=== PATIENT | female | born 2000 | race Caucasian/White ===

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

== ENCOUNTER → 2021-01-13 09:32 | Outpatient (BNVA) | payer MEDICAID, SELFPAY | PROVIDERS: PCP Physician Assistant; Visit Provider Specialist | DX: G43.711 Chronic migraine without aura, intractable, with status migrainosus (principal) | CPT/HCPCS: 64615; J0585 ==

== ENCOUNTER 2021-02-15 13:16 | Emergency (ER) | payer MEDICAID, SELFPAY ==
[2021-02-15 13:43] VITALS: BP 100/66; PULSE 88; RESP 18; TEMP 36.9; O2SAT 100; BMI 33.8
--- NOTE | 2021-02-15 14:03 | CT_ITS ---
WS: [email or web address] Reason For Exam: neck pain/head injury DLP: 823.[address] scans at [facility] use at least one of these dose optimization techniques: automated e xposure control; mA and/or kV adjustment per patient size (includes targeted exams where dose is matc hed to clinical indication); or iterative reconstruction. 02/15/2021 4:02 PM. The C-spine is evaluated in axial plane with sagittal and coronal reformatted images. No evidence of fracture or dislocation. Small calcification along the posterior longitudinal ligament at C3-4. Paraspinal soft tissues appear normal. CT/CT cervical spin wo con* [id number] IMPRESSION: 1. No acute C-spine fracture or malalignment.
--- NOTE | 2021-02-15 14:03 | CT_ITS ---
WS: [email or web address] Exam: CT head wo con* [id number] Date/Time of Exam: 02/15/2021 3:41 PM Reason For Exam: trauma DLP: 907.[address] scans at [facility] use at least one of these dose optimization techniques: automated e xposure control; mA and/or kV adjustment per patient size (includes targeted exams where dose is matc hed to clinical indication); or iterative reconstruction. Technique: Axial contiguous CT images of the brain are obtained. Findings: There is no midline shift. There is no sign of intracranial blood, mass effect or extra axial fluid collection. No sign of acute stroke. The skull and orbits show no evidence of injury or other acute pathologic process. Visualized sinuses are clear. CT/CT head wo con* [id number] Impression: No acute intracranial abnormality.
--- NOTE | 2021-02-15 16:46 | W.ED.HEATRA ---
HPI - Head Injury General: Chief complaint: Head Injury Stated complaint: HEAD INJURY SUN:H/A,BLURRED VISION,SLOWED SPEECH Time Seen by Provider: 02/15/21 16:46 Source: patient Mode of arrival: ambulatory Limitations: no limitations History of Present Illness: HPI Narrative: Patient is a 20-year-old female who presents to the ED today for evaluation following a head injury that occurred 2 days ago. Patient tells me she was loading groceries into her car when her trunk fell onto her head. No LOC. Patient has had a headache since. She complains of some mild blurry vision and feels like she has tingling inside of her head . She also feels like her speech is slowed. She states she was told to come to the ED from her PCP. Patient has not had any vomiting. She has no problems with ambulation. Complaint: head injury Onset (ago): day(s) (2 days ago) Arrival Conditions: C-spine immobilization present (placed in triage for complaints of neck pain) Place: outdoors Loss of Consciousness: no Location of injury: parietal and occipital Other Injuries: none Associated symptoms: Reports neck pain; Deny nausea or vomiting Review of Systems Const: Denies: fever(s), chills, body aches, fatigue or malaise Eyes: Reports: blurry vision; Denies: change in vision, photophobia, floaters or seeing flashes ENMT: Denies: throat pain, odynophagia, ear or mastoid pain, ear discharge, nasal discharge, nasal congestion or epistaxis Card: Denies: chest pain Resp: Denies: dyspnea GI: Denies: abdominal pain, nausea or vomiting Musc: Reports: neck pain; Denies: back pain, extremity pain, extremity swelling, joint pain or joint swelling Skin/Breast: Denies: rash Neuro: Reports: headache(s); Denies: numbness in extremities, weakness in extremities, sensory changes, frequent falls, Slurred speech present or seizure-like activity [facility] ED PFSH: Medical History Depression with anxiety Migraines Surgical History History of adenoidectomy History of tonsillectomy Status post laparoscopic cholecystectomy (07/26/20) Social History Second hand smoke exposure: No Alcohol intake: never Lives independently: Yes Household members: significant other Female Reproductive History: Date of last menstrual period: 01/29/21 Physical Exam Const: COMMON NORMALS: no acute distress, average body habitus, patient oriented x3, no limitations, healthy appearing, alert and well nourished GENERAL APPEARANCE: cooperative ORIENTATION/CONSCIOUSNESS: Yes awake, Yes oriented to person, Yes oriented to place and Yes oriented to time HENMT: COMMON NORMALS: normocephalic, atraumatic and Normal external nose present HEAD & SCALP: normal to inspection, normocephalic and atraumatic FACE & SINUS: normal facial exam NOSE: Normal external nose present; no Nasal discharge present Neck/C-Spine: COMMON NORMALS: full ROM CERVICAL SPINE: Yes cervical ROM normal, Yes Cervical spine tenderness (mild) and No step off deformity Neuro: PHILLIP COMA SCALE: document GCS findings [place] coma scale eye opening: Spontaneous [place] coma scale verbal response: Orientated [place] coma scale motor response: Obey commands [place] coma scale total score: 15 COMMON NORMALS: patient oriented x3, CN's II-XII intact bilaterally, moves all extremities, no focal motor deficits, no sensory deficits noted and gait normal SENSORIUM/ORIENTATION: Yes alert, Yes oriented to person, Yes oriented to place and Yes oriented to time SPEECH: speech normal GAIT: Yes Normal gait present Skin: COMMON NORMALS: no rashes or lesions noted GENERAL SKIN EXAM: no rashes or lesions noted Course Vital Signs: Vital signs: Vital Signs Temperature 98.5 F 02/15/21 13:43 Pulse Rate 78 02/15/21 16:55 Respiratory Rate 18 02/15/21 16:55 Blood Pressure 97/66 02/15/21 16:55 Pulse Oximetry 99 02/15/21 16:55 MDM - Head Injury MDM Narrative: Medical decision making narrative: Patient has no acute neurological deficits here. CTs are negative. Symptoms most likely secondary to mild concussion. Recommend she follow-up with her primary care provider in 3 to 5 days if symptoms persist. Imaging Data^: CT cervical : Radiologist's impression: [address] [address] [address] Scan Report Signed Patient: Mickie Brooks Unit #: [id number] : 2000 Age/Sex: 20 / F ADM Date: 02/15/21 Loc: ER Room/Bed: Attending Dr: Ordering Provider/Ordering MD: Fanta Cruz Date of Service: 02/15/21 Procedure(s): CT cervical spin wo con* [id number] Accession Number(s): [id number] Report Number: [id number] WS: [email or web address] Reason For Exam: neck pain/head injury DLP: 823.[address] scans at [facility] use at least one of these dose optimization techniques: automated exposure control; mA and/or kV adjustment per patient size (includes targeted exams where dose is matched to clinical indication); or iterative reconstruction. 02/15/2021 4:02 PM. The C-spine is evaluated in axial plane with sagittal and coronal reformatted images. No evidence of fracture or dislocation. Small calcification along the posterior longitudinal ligament at C3-4. Paraspinal soft tissues appear normal. CT/CT cervical spin wo con* [id number] IMPRESSION: 1. No acute C-spine fracture or malalignment. Dictated By: Berry Haines DO Signed By: Berry Haines DO Signed Date/Time: 02/15/21 1603 DD/ 1559 CT Head: Radiologist's impression: [address] [address] [address] Scan Report Signed Patient: Mickie Brooks Unit #: [id number] : 2000 Age/Sex: 20 / F ADM Date: 02/15/21 Loc: ER Room/Bed: Attending Dr: Ordering Provider/Ordering MD: Fanta Cruz Date of Service: 02/15/21 Procedure(s): CT head wo con* [id number] Accession Number(s): [id number] Report Number: [id number] WS: [email or web address] Exam: CT head wo con* [id number] Date/Time of Exam: 02/15/2021 3:41 PM Reason For Exam: trauma DLP: 907.[address] scans at [facility] use at least one of these dose optimization techniques: automated exposure control; mA and/or kV adjustment per patient size (includes targeted exams where dose is matched to clinical indication); or iterative reconstruction. Technique: Axial contiguous CT images of the brain are obtained. Findings: There is no midline shift. There is no sign of intracranial blood, mass effect or extra axial fluid collection. No sign of acute stroke. The skull and orbits show no evidence of injury or other acute pathologic process. Visualized sinuses are clear. CT/CT head wo con* [id number] Impression: No acute intracranial abnormality. Dictated By: Berry Haines DO Signed By: Berry Haines DO Signed Date/Time: 02/15/211558 DD/ 57 Discharge Plan Discharge Patient Disposition: Home Clinical Impression: Concussion without loss of consciousness Qualifiers: Encounter type: initial encounter Qualified Code(s): S06.0X0A - Concussion without loss of consciousness, initial encounter Condition: Stable Prescriptions: No Action amoxicillin-pot clavulanate [Augmentin] 875-125 mg tablet 1 tab PO Q12H RF: 0 topiramate 50 mg tablet See Rx Instructions .ROUTE .COMPLEX Qty: 30 RF: 3 venlafaxine 150 mg capsule,extended release 24hr See Rx Instructions .ROUTE .COMPLEX Qty: 30 RF: 3 acetaminophen 500 mg Tablet 1,000 mg PO Q6H PRN (Reason: Pain) RF: 0 albuterol sulfate 2.5 mg /3 mL (0.083 %) Solution For Nebulization 2.5 mg INHALATION Q4H PRN (Reason: ASTHMA) RF: 0 Discharge Orders: Discharge ED (Routine); Ordered 02/15/21 Ordered By: Fanta Cruz Referrals: Lissa Hanson PA-C [Primary Care Provider] - Patient Instructions: Concussion/Head Injury - Adult, Concussion (ED), Post Concussion Syndrome (ED) Stand Alone Forms: Work/School Release Coding Level of Care Code ED Email Campaign Specialist for Rolf Mancia
[2021-02-15 16:55] VITALS: BP 97/66; PULSE 78; RESP 18; O2SAT 99
== END 2021-02-15 17:18 | disposition home or self-care (01) ==
PROVIDERS: Emergency Provider Physician Assistant; PCP Physician Assistant
DX: S06.0X0A Concussion without loss of consciousness, initial encounter (principal); W20.8XXA Other cause of strike by thrown, projected or falling object, initial encounter
CPT/HCPCS: 70450; 72125; 99282

== ENCOUNTER → 2021-04-28 09:44 | Outpatient (BNVA) | payer MEDICAID, SELFPAY | PROVIDERS: PCP Physician Assistant; Visit Provider Specialist | DX: G43.711 Chronic migraine without aura, intractable, with status migrainosus (principal); Z71.85 Encounter for immunization safety counseling | CPT/HCPCS: 64615; G0463; J0585 ==

== ENCOUNTER → 2021-07-28 09:52 | Outpatient (BNVA) | payer MEDICAID, SELFPAY | PROVIDERS: PCP Physician Assistant; Visit Provider Specialist | DX: G43.711 Chronic migraine without aura, intractable, with status migrainosus (principal); M54.2 Cervicalgia; R42 Dizziness and giddiness; R11.0 Nausea | CPT/HCPCS: 64615; 99213; 99214; J0585 ==